=== PATIENT | male | born 1990 | race Asian ===

== ENCOUNTER 2016-05-22 10:52 | Emergency (ER) | payer MEDICAID ==
[2016-05-22 11:02] VITALS: BP 128/90
== END 2016-05-22 11:45 | disposition home or self-care (01) ==
LOC: ED 10:52
DX: S61.451A Open bite of right hand, initial encounter (principal); W54.0XXA Bitten by dog, initial encounter; Y93.89 Activity, other specified; Y99.8 Other external cause status; Y92.89 Other specified places as the place of occurrence of the external cause
CPT/HCPCS: 90715